=== PATIENT | female | born 1935 | race African-American/Black ===

== ENCOUNTER 2018-01-10 22:24 | Emergency (ER) | payer OTHER ==
[~2018-01-10] VITALS: Ht 165.1 cm; Wt 70.3 kg
== END 2018-01-11 02:34 | disposition expired ==
LOC: ER 22:42 → EDBD 22:42 → ER 01-11 02:34
DX: I46.9 Cardiac arrest, cause unspecified (principal); E11.9 Type 2 diabetes mellitus without complications
CPT/HCPCS: 31500; 92950; 92960